=== PATIENT | male | born 1960 | race Caucasian/White ===

== ENCOUNTER → 2017-07-21 | Outpatient (CLI) | payer OTHER | LOC: BMCIMAGING 14:58 | PROVIDERS: ATTEND Internal Medicine | DX: J40 Bronchitis, not specified as acute or chronic (principal) ==

== ENCOUNTER 2018-08-26 10:48 | Outpatient (CLI) | payer OTHER | END 2018-09-16 | LOC: FIMAGING 10:48 ==